=== PATIENT | female | born 1955 | race Caucasian/White ===

== ENCOUNTER 2021-01-10 22:28 | Inpatient (IN) | payer OTHER ==
[~2021-01-10 22:28] MED LIST: 3IN1 COMMODE; ATIVAN0.5 MG PO; CARDIA; CARTIA XT240 MG PO; CEFDINIR300 MG PO; CHANTIX1 EACH PO; CITALOPRAM HBR10 MG PO; CRESTOR20 MG PO; FLEXERIL5 MG PO; HABITROL14 MG TD; HCTZ25 MG PO; LEVAQUIN750 MG PO; MEDROL 4MG DOSEP4 MG PO; METFORMIN HCL500 M3 PO; PREDNISONE 10MG10 MG PO; PREDNISONE 20MG20 MG PO; PROMETHAZINE V118 ML PO; SINGULAIR10 MG PO; SYMBICORT 80-10.2 GM INH; SYNTHROID25 MCG PO; TESSALON PERLE100 MG PO; TRIAMTERENE-HC1 EAC1 PO; VENTOLIN HFA IN18 GM INH; VIBRAMYCIN100 MG PO; VICODIN 10/3251 EACH PO; XANAX0.25 MG PO
[2021-01-10 23:07] LABS: BASOPHIL 0.2 % (0-2); EOSINOPHIL 0.1 % (0-5); HCT 38.8 % (37.0-47.0); HGB 13.1 g/dl (12.5-16.0); LYMPHOCYTE 5.2 % (15-48); MCH 30.5 pg (25.0-31.0); MCHC 33.8 g/dL (32.0-36.0); MCV 90.2 fL (78.0-100.0); MONOCYTE 4.9 % (0-12); MPV 9.8 fL (6.0-9.5); NEUTROPHIL 88.8 % (41-80); NRBC 0; PLT 302 K/uL (150-400); WBC 17.5 K/uL (4.0-10.5)
[2021-01-10 23:27] LABS: ALBUMIN 2.9 g/dL (3.4-5.0); BILIRUBIN - TOTAL 0.4 mg/dL (0.2-1.0); BUN/CREAT RATIO (CALC) 28.1 RATIO; CREATININE 0.64 mg/dL (0.51-0.95); GLOBULIN (CALCULATION) 3.9 g/dL; POTASSIUM 4.1 mmol/L (3.5-5.1); TOTAL PROTEIN 6.8 g/dL (6.4-8.2)
[2021-01-10 23:36] LABS: PRO-BNP 1032 pg/mL (<125)
[2021-01-11 02:39] LABS: CORONAVIRUS 2019 SARS-COV-2 NEGATIVE (NEGATIVE); INFLUENZA A NAA NEGATIVE (NEGATIVE)
[2021-01-11] MEDS ORDERED: CELEXA10 MG PO (04:40)
[2021-01-11] MEDS ORDERED: METFORMIN HCL500 MG PO (04:42)
[2021-01-11] MEDS ORDERED: CRESTOR10 MG PO (04:43)
[2021-01-11 08:09] LABS: BASOPHIL 0.2 % (0-2); EOSINOPHIL 0 % (0-5); HCT 38.1 % (37.0-47.0); HGB 12.8 g/dl (12.5-16.0); LYMPHOCYTE 7.5 % (15-48); MCH 30.5 pg (25.0-31.0); MCHC 33.6 g/dL (32.0-36.0); MCV 90.9 fL (78.0-100.0); MPV 9.8 fL (6.0-9.5); NEUTROPHIL 89.7 % (41-80); NRBC 0; PLT 280 K/uL (150-400); RBC 4.19 M/uL (4.20-5.40); WBC 13.7 K/uL (4.0-10.5)
[2021-01-11 08:29] LABS: BUN/CREAT RATIO (CALC) 33.8 RATIO; CREATININE 0.68 mg/dL (0.51-0.95); POTASSIUM 4.1 mmol/L (3.5-5.1)
[2021-01-11] MEDS ORDERED: VITAMIN B-121000 MC1 PO (12:30)
[2021-01-12 05:58] LABS: BASOPHIL 0.2 % (0-2); EOSINOPHIL 0 % (0-5); HCT 38.8 % (37.0-47.0); HGB 12.5 g/dl (12.5-16.0); LYMPHOCYTE 8.4 % (15-48); MCH 30.2 pg (25.0-31.0); MCHC 32.2 g/dL (32.0-36.0); MCV 93.7 fL (78.0-100.0); MONOCYTE 3.5 % (0-12); MPV 10.1 fL (6.0-9.5); NEUTROPHIL 87.1 % (41-80); NRBC 0; PLT 285 K/uL (150-400); RBC 4.14 M/uL (4.20-5.40); RDW 12.2 % (11.5-14.0); WBC 16.8 K/uL (4.0-10.5)
[2021-01-12 06:21] LABS: BUN/CREAT RATIO (CALC) 35.1 RATIO; CREATININE 0.57 mg/dL (0.51-0.95); POTASSIUM 3.9 mmol/L (3.5-5.1)
--- NOTE | 2021-01-12 14:45 | NUR ---
01/12/21 Ms. Best lives alone, however, her son is "in and out" of the house. She was independent in the home and community prior to admission. - Ms. Best has home 02, nebulizer and percussion vest. was recommended for nursing at discharge. [facility]. [facility] preference [facility]. [facility] accept patient. A referral was made via [facility] to [facility].
[2021-01-13 05:52] LABS: HCT 35.1 % (37.0-47.0); HGB 11.5 g/dl (12.5-16.0); MCH 30.1 pg (25.0-31.0); MCHC 32.8 g/dL (32.0-36.0); MCV 91.9 fL (78.0-100.0); MPV 9.9 fL (6.0-9.5); RBC 3.82 M/uL (4.20-5.40); RDW 12.2 % (11.5-14.0)
[2021-01-13 06:11] LABS: BUN/CREAT RATIO (CALC) 27.3 RATIO; CREATININE 0.66 mg/dL (0.51-0.95); POTASSIUM 3.6 mmol/L (3.5-5.1)
[2021-01-13] MEDS ORDERED: MUCINEX 600MG600 MG PO (13:35)
[2021-01-13] MEDS ORDERED: AUGMENTIN 875-1 EACH PO (13:35)
== END 2021-01-13 15:04 | disposition home health service (06) | DRG 871 ==
LOC: FER 22:28 → FMS 01-11 03:19
PROVIDERS: Emergency Medicine Emergency Medical Services; Hospitalist; Nurse Practitioner; ADMIT Internal Medicine
DX: A41.9 Sepsis, unspecified organism (principal); J18.9 Pneumonia, unspecified organism; J96.21 Acute and chronic respiratory failure with hypoxia; R65.10 Systemic inflammatory response syndrome (SIRS) of non-infectious origin without acute organ dysfunction; J43.9 Emphysema, unspecified; Z20.822 Contact with and (suspected) exposure to COVID-19; E11.9 Type 2 diabetes mellitus without complications; I10 Essential (primary) hypertension; E05.00 Thyrotoxicosis with diffuse goiter without thyrotoxic crisis or storm; R91.1 Solitary pulmonary nodule; F41.1 Generalized anxiety disorder; E78.5 Hyperlipidemia, unspecified; E03.9 Hypothyroidism, unspecified; R94.31 Abnormal electrocardiogram [ECG] [EKG]; Z90.49 Acquired absence of other specified parts of digestive tract; Z98.51 Tubal ligation status; Z98.890 Other specified postprocedural states; Z79.84 Long term (current) use of oral hypoglycemic drugs; Z79.51 Long term (current) use of inhaled steroids; Z79.899 Other long term (current) drug therapy; Z88.4 Allergy status to anesthetic agent; Z91.040 Latex allergy status
CPT/HCPCS: 36415; 36600; 71045; 71275; 80048; 80053; 82803; 82962; 83605; 83735; 83880; 84145; 84484; 85025; 85379; 87040; 93005; 94010; 94640; 94664; 94667; 94668; 94760; J1650; J1885; J2543; J2930; J7030; Q9967; U0002

== ENCOUNTER 2021-04-01 20:21 | Inpatient (IN) | payer OTHER ==
[~2021-04-01] VITALS: Ht 165 cm; Wt 66.3 kg
[~2021-04-01 20:21] MED LIST changes: +AUGMENTIN 875-1 EACH PO; +CELEXA10 MG PO; +CRESTOR10 MG PO; +METFORMIN HCL500 MG PO; +MUCINEX 600MG600 MG PO; +VITAMIN B-121000 MC1 PO
[2021-04-01 21:02] LABS: BASOPHIL 0.5 % (0-2); EOSINOPHIL 0.8 % (0-5); HCT 43.8 % (37.0-47.0); HGB 14.5 g/dl (12.5-16.0); LYMPHOCYTE 26.8 % (15-48); MCH 30.1 pg (25.0-31.0); MCHC 33.1 g/dL (32.0-36.0); MCV 91.1 fL (78.0-100.0); MONOCYTE 6.6 % (0-12); MPV 9.5 fL (6.0-9.5); NEUTROPHIL 64.6 % (41-80); NRBC 0; PLT 318 K/uL (150-400); RBC 4.81 M/uL (4.20-5.40); RDW 12.5 % (11.5-14.0); WBC 13.5 K/uL (4.0-10.5)
[2021-04-01 21:17] LABS: ALBUMIN 3.9 g/dL (3.4-5.0); BILIRUBIN - TOTAL 0.2 mg/dL (0.2-1.0); BUN/CREAT RATIO (CALC) 23.9 RATIO; CREATININE 0.67 mg/dL (0.51-0.95); GLOBULIN (CALCULATION) 3.1 g/dL; POTASSIUM 3.9 mmol/L (3.5-5.1)
[2021-04-01 23:38] LABS: INR 0.97 (0.9-1.2); PROTHROMBIN TIME 12.3 SECONDS (11.8-13.4); PTT 29.4 SECONDS (24.4-34.7)
[2021-04-01 23:52] LABS: BILIRUBIN NEGATIVE (NEGATIVE); BLOOD NEGATIVE Ery/uL (NEGATIVE); CLARITY CLEAR (CLEAR); COLOR YELLOW (YELLOW); GLUCOSE (U) NORMAL (NORMAL); LEUKOCYTES NEGATIVE Leu/uL (NEGATIVE); NITRITE NEGATIVE (NEGATIVE); PROTEIN NEGATIVE (NEGATIVE); SPECIFIC GRAVITY 1.025 (1.001-1.030); UROBILINOGEN 0.2 mg/dL (0.2-1.0); pH 6.5 (5.0-9.0)
[2021-04-02] MEDS ORDERED: SYNTHROID100 MCG PO (00:52)
[2021-04-02] MEDS ORDERED: VALSARTAN-HCTZ1 EAC4 PO (00:55)
[2021-04-02] MEDS ORDERED: CRESTOR5 MG PO (00:57)
[2021-04-02 07:12] LABS: BASOPHIL 0.4 % (0-2); EOSINOPHIL 0.1 % (0-5); HCT 41.8 % (37.0-47.0); HGB 13.9 g/dl (12.5-16.0); LYMPHOCYTE 21.3 % (15-48); MCH 30.3 pg (25.0-31.0); MCHC 33.3 g/dL (32.0-36.0); MCV 91.1 fL (78.0-100.0); MONOCYTE 7.2 % (0-12); NEUTROPHIL 70.5 % (41-80); NRBC 0; PLT 262 K/uL (150-400); RBC 4.59 M/uL (4.20-5.40); RDW 12.5 % (11.5-14.0)
[2021-04-02 07:28] LABS: BUN/CREAT RATIO (CALC) 24.2 RATIO; CREATININE 0.62 mg/dL (0.51-0.95); POTASSIUM 4.2 mmol/L (3.5-5.1)
[2021-04-02 08:44] LABS: IRON % SATURATION 13.2 %SAT (20-50)
[2021-04-02 09:12] LABS: MAGNESIUM 1.8 mg/dL (1.8-2.4)
--- NOTE | 2021-04-02 12:07 | NUR ---
ADVISED BY URSZULA VEGA. THAT PT DAUGHTER, TRENT WANTS HER MOTHER TO HAVE HH. SHE CURRENTLY HAS HOME O2. URSZULA WILL SPEAK WITH TRENT REGARDING THE HH.
--- NOTE | 2021-04-02 12:08 | NUR ---
PER PT. DAUGHTER ISELA. PT. WANTS [facility].
[2021-04-02 12:17] LABS: HCG (URINE) SCREEN NEGATIVE (NEGATIVE)
--- NOTE | 2021-04-02 15:58 | NUR ---
PT. DAUGHTER TRENT ADVISED THAT PT WILL NEED A WHEELCHAIR WELL. ADVISED TRENT I WOULD LET CHON AT [facility] KNOW ABOUT THIS AND HAVE CHON CALL HER. PT. HAS REQUESTED [facility] FOR HH.
--- NOTE | 2021-04-02 16:01 | NUR ---
CONTACT [facility] IF PT. D/C OVER WEEKEND AND HOLIDAY.
--- NOTE | 2021-04-02 22:52 | NUR ---
ABG OBTAINED PER ORDER. PO2 50, SAT 87% ON 31% VM INCREASED PATIENT TO 35% VM PATIENT REMAINS COMPENSATED WITH SLIGHTLY ELEVATED CO2 NOTIFIED GARY BORUSSARD
--- NOTE | 2021-04-03 03:41 | NUR ---
DECREASED PATIENT BACK TO 31% SAT 99% ON 35% VM. PATIENT WOKE UP WELL AND ALERT/ORIENTED FOR BREATHING TX
[2021-04-03 04:31] LABS: BASOPHIL 0.3 % (0-2); EOSINOPHIL 0.1 % (0-5); HCT 38.5 % (37.0-47.0); HGB 12.6 g/dl (12.5-16.0); LYMPHOCYTE 15.4 % (15-48); MCH 30.3 pg (25.0-31.0); MCHC 32.7 g/dL (32.0-36.0); MCV 92.5 fL (78.0-100.0); MONOCYTE 7.3 % (0-12); MPV 9.4 fL (6.0-9.5); NEUTROPHIL 76.6 % (41-80); NRBC 0; PLT 213 K/uL (150-400); RBC 4.16 M/uL (4.20-5.40); RDW 12.4 % (11.5-14.0); WBC 13.1 K/uL (4.0-10.5)
[2021-04-03 04:59] LABS: IRON % SATURATION 12.7 %SAT (20-50)
[2021-04-03 05:27] LABS: CREATININE 0.61 mg/dL (0.51-0.95); MAGNESIUM 1.9 mg/dL (1.8-2.4); PHOSPHORUS 3.4 mg/dL (2.6-4.7); POTASSIUM 3.7 mmol/L (3.5-5.1)
[2021-04-04 04:10] LABS: BASOPHIL 0.1 % (0-2); EOSINOPHIL 0 % (0-5); HCT 35.6 % (37.0-47.0); HGB 11.8 g/dl (12.5-16.0); LYMPHOCYTE 9.8 % (15-48); MCH 30.1 pg (25.0-31.0); MCHC 33.1 g/dL (32.0-36.0); MCV 90.8 fL (78.0-100.0); MONOCYTE 4.4 % (0-12); NRBC 0; PLT 185 K/uL (150-400); RBC 3.92 M/uL (4.20-5.40); RDW 12.6 % (11.5-14.0); WBC 12.1 K/uL (4.0-10.5)
[2021-04-04 04:30] LABS: BUN/CREAT RATIO (CALC) 24.1 RATIO; CREATININE 0.54 mg/dL (0.51-0.95); POTASSIUM 4.1 mmol/L (3.5-5.1)
[2021-04-05 05:41] LABS: BASOPHIL 0.8 % (0-2); EOSINOPHIL 1.1 % (0-5); HCT 38.2 % (37.0-47.0); HGB 12.5 g/dl (12.5-16.0); LYMPHOCYTE 31.8 % (15-48); MCH 30.2 pg (25.0-31.0); MCHC 32.7 g/dL (32.0-36.0); MCV 92.3 fL (78.0-100.0); MONOCYTE 5.4 % (0-12); MPV 9.9 fL (6.0-9.5); NEUTROPHIL 60.5 % (41-80); NRBC 0; PLT 223 K/uL (150-400); RBC 4.14 M/uL (4.20-5.40); RDW 12.7 % (11.5-14.0); WBC 11.3 K/uL (4.0-10.5)
[2021-04-05 05:58] LABS: BUN/CREAT RATIO (CALC) 27.9 RATIO; CREATININE 0.68 mg/dL (0.51-0.95); POTASSIUM 4.3 mmol/L (3.5-5.1)
[2021-04-05] MEDS ORDERED: FEOSOL325 MG PO (14:31)
[2021-04-05] MEDS ORDERED: XARELTO10 MG PO (14:31)
[2021-04-05] MEDS ORDERED: NORCO 5-325 TA1 EACH PO (14:31)
--- NOTE | 2021-04-10 09:59 | NUR ---
TELEPHONE CALL RECEIVED FROM PATIENT STATING/REQUESTING NURSING CARE THROUGH HOME HEALTH. PATIENT STATED HOME VISITS ARE BEING MADE BY PHYSICAL THERAPY THROUGH [facility] BUT NO NURSE HAS VISITED. PATIENT STATES SHE WAS TOLD SHE WOULD HAVE HOME HEALTH NURSING AT TIME OF DISCHARGE. THIS RN CONTACTED [facility] AND SPOKE WITH SUZY, THE AGRICULTURE LABORER NURSE, WHO STATED HOME HEALTH NURSING WAS NOT REQUESTED AT TIME OF DISCHARGE. THIS RN ASKED IF AN ORDER COULD BE SENT TODAY FROM OUR HOSPITALIST. AMAN RN STATED PATIENT'S PCP WOULD HAVE TO BE CONTACTED ON MONDAY AND AN ORDER OBTAINED FOR NURSING CARE THROUGH HOME HEALTH. THIS RN CALLED PATIENT TO INFORM OF NEED FOR HOME HEALTH TO CONTACT PATIENT'S PCP ON MONDAY.
== END 2021-04-05 15:52 | disposition home health service (06) | DRG 480 ==
LOC: FER 20:21 → FMS 23:06 → FTCU 04-02 15:09 → FMS 04-04 11:04
PROVIDERS: Emergency Medicine Emergency Medical Services; Nurse Practitioner; Orthopaedic Surgery; ADMIT Internal Medicine
PROC: 0QS604Z Reposition Right Upper Femur with Internal Fixation Device, Open Approach (ICD-10-PCS; principal; 2021-04-02 13:30)
DX: S72.031A Displaced midcervical fracture of right femur, initial encounter for closed fracture (principal); J96.01 Acute respiratory failure with hypoxia; J96.02 Acute respiratory failure with hypercapnia; J44.9 Chronic obstructive pulmonary disease, unspecified; R59.0 Localized enlarged lymph nodes; E11.9 Type 2 diabetes mellitus without complications; Z20.822 Contact with and (suspected) exposure to COVID-19; E05.00 Thyrotoxicosis with diffuse goiter without thyrotoxic crisis or storm; E78.5 Hyperlipidemia, unspecified; I49.3 Ventricular premature depolarization; D64.9 Anemia, unspecified; L29.9 Pruritus, unspecified; I27.20 Pulmonary hypertension, unspecified; F17.200 Nicotine dependence, unspecified, uncomplicated; Z88.4 Allergy status to anesthetic agent; Z98.890 Other specified postprocedural states; Z91.040 Latex allergy status; Z87.01 Personal history of pneumonia (recurrent); Z90.49 Acquired absence of other specified parts of digestive tract; Z98.51 Tubal ligation status; W01.0XXA Fall on same level from slipping, tripping and stumbling without subsequent striking against object, initial encounter
CPT/HCPCS: 36415; 36600; 71045; 72170; 73501; 73552; 73700; 76000; 80048; 80053; 81003; 82607; 82803; 82962; 83036; 83540; 83550; 83735; 84100; 84484; 84703; 85025; 85610; 85730; 87088; 93005; 94010; 94640; 94667; 94668; 94760; 96374; 96375; 96376; 97162; 97166; 97530; 97530-GP; 97535; C1713; J0697; J1170; J1200; J2250; J2370; J2405; J2704; J2800; J2916; J2920; J3010; J7050; J7120; U0002

== ENCOUNTER 2021-07-09 15:16 | Emergency (ER) | payer OTHER ==
[~2021-07-09 15:16] MED LIST changes: +CRESTOR5 MG PO; +FEOSOL325 MG PO; +NORCO 5-325 TA1 EACH PO; +SYNTHROID100 MCG PO; +VALSARTAN-HCTZ1 EAC4 PO; +XARELTO10 MG PO
[2021-07-09 16:19] LABS: BASOPHIL 0.5 % (0-2); EOSINOPHIL 1.6 % (0-5); HCT 44.8 % (37.0-47.0); HGB 14.5 g/dl (12.5-16.0); LYMPHOCYTE 32.4 % (15-48); MCH 29.7 pg (25.0-31.0); MCHC 32.4 g/dL (32.0-36.0); MCV 91.8 fL (78.0-100.0); MONOCYTE 7.8 % (0-12); MPV 9.7 fL (6.0-9.5); NEUTROPHIL 57.5 % (41-80); NRBC 0; PLT 333 K/uL (150-400); RBC 4.88 M/uL (4.20-5.40); RDW 12.2 % (11.5-14.0); WBC 8.7 K/uL (4.0-10.5)
[2021-07-09 16:31] LABS: BILIRUBIN - TOTAL 0.4 mg/dL (0.2-1.0); BUN/CREAT RATIO (CALC) 18.8 RATIO; CREATININE 0.64 mg/dL (0.51-0.95); GLOBULIN (CALCULATION) 2.6 g/dL; POTASSIUM 4.3 mmol/L (3.5-5.1); TOTAL PROTEIN 6.6 g/dL (6.4-8.2)
[2021-07-09 16:58] LABS: CORONAVIRUS 2019 SARS-COV-2 NEGATIVE (NEGATIVE); INFLUENZA A NAA NEGATIVE (NEGATIVE)
[2021-07-09] MEDS ORDERED: PREDNISONE 20MG20 MG PO (18:25)
== END 2021-07-09 19:03 | disposition home or self-care (01) ==
LOC: FER 15:16
PROVIDERS: Internal Medicine
DX: J44.1 Chronic obstructive pulmonary disease with (acute) exacerbation (principal); I10 Essential (primary) hypertension; E11.9 Type 2 diabetes mellitus without complications; F17.210 Nicotine dependence, cigarettes, uncomplicated; Z20.822 Contact with and (suspected) exposure to COVID-19
CPT/HCPCS: 36415; 36600; 71045; 80053; 82803; 83880; 84145; 85025; 87040; J2930; U0002

== ENCOUNTER 2022-05-27 13:23 | Emergency (ER) | payer OTHER ==
[2022-05-27 14:02] LABS: BASOPHIL 0.2 % (0-2); EOSINOPHIL 0.5 % (0-7); HCT 41.2 % (37.0-47.0); HGB 13.5 g/dl (12.5-16.0); MCHC 32.8 g/dL (32.0-36.0); MCV 88.4 fL (78.0-100.0); MPV 9.8 fL (6.0-9.5); NEUTROPHIL 71.1 % (41-80); NRBC 0; PLT 269 K/uL (150-400); RBC 4.66 M/uL (4.20-5.40); RDW 12.9 % (11.5-14.0); WBC 13.1 K/uL (4.0-10.5)
[2022-05-27 14:21] LABS: CORONAVIRUS 2019 SARS-COV-2 NEGATIVE (NEGATIVE); INFLUENZA A NAA NEGATIVE (NEGATIVE)
[2022-05-27 14:32] LABS: ALBUMIN 3.3 g/dL (3.4-5.0); BILIRUBIN - TOTAL 0.2 mg/dL (0.2-1.0); BUN/CREAT RATIO (CALC) 31.7 RATIO; CREATININE 0.6 mg/dL (0.51-0.95); GLOBULIN (CALCULATION) 2.9 g/dL; POTASSIUM 3.5 mmol/L (3.5-5.1); TOTAL PROTEIN 6.2 g/dL (6.4-8.2)
[2022-05-27 16:07] LABS: LACTIC ACID 1.5 mmol/L (0.4-1.9)
== END 2022-05-27 16:57 | disposition home or self-care (01) ==
LOC: FER 13:23
PROVIDERS: Emergency Medicine; Nurse Practitioner Family
DX: J44.1 Chronic obstructive pulmonary disease with (acute) exacerbation (principal); E11.9 Type 2 diabetes mellitus without complications; Z28.310 Unvaccinated for COVID-19; Z20.822 Contact with and (suspected) exposure to COVID-19; Z79.84 Long term (current) use of oral hypoglycemic drugs
CPT/HCPCS: 36415; 71045; 71250; 80053; 83605; 84484; 85025; 85379; 93005; J1100; U0002